=== PATIENT | female | born 1995 | race Caucasian/White ===

== ENCOUNTER 2021-08-26 12:45 | Outpatient (CLI) | payer OTHER ==
[~2021-08-26] VITALS: Ht 154.9 cm; Wt 60.0 kg
[~2021-08-26 12:45] MED LIST: SODIUM CHLORIDE 0.9% INJ 10 ML SYR IV SCH
[2021-08-26 13:00] VITALS: BP 119/69
== END 2021-08-26 13:15 | disposition home or self-care (01) ==
LOC: M INFU 12:45
PROVIDERS: ATTEND Internal Medicine Critical Care Medicine
DX: E84.9 Cystic fibrosis, unspecified (principal)
CPT/HCPCS: 96523; J1642

== ENCOUNTER → 2021-09-30 | Outpatient (CLI) | payer OTHER ==
[2021-09-30 11:23] LABS: SWEAT TEST RT ARM 50.9 MEQ CL/L (0.0-40.0); WEIGHT OF SWEAT LFT ARM QNS MG
== END ==
LOC: M LAB 09:28
PROVIDERS: ATTEND Internal Medicine Pulmonary Disease
DX: E84.9 Cystic fibrosis, unspecified (principal)

== ENCOUNTER 2022-02-15 13:13 | Outpatient (CLI) | payer OTHER ==
[~2022-02-15] VITALS: Ht 154.9 cm; Wt 60.0 kg
[~2022-02-15 13:13] MED LIST changes: +SODIUM CHLORIDE 0.9% INJ 10 ML SYR IV PRN
[2022-02-15 13:29] VITALS: BP 126/76
== END 2022-02-15 13:30 | disposition home or self-care (01) ==
LOC: M INFU 13:13
PROVIDERS: ATTEND Nurse Practitioner Adult Health
DX: E84.9 Cystic fibrosis, unspecified (principal)
CPT/HCPCS: 96523; J1642

== ENCOUNTER 2022-07-26 12:54 | Outpatient (CLI) | payer OTHER ==
[~2022-07-26] VITALS: Ht 154.9 cm; Wt 60.0 kg
[2022-07-26] MEDS ORDERED: SODIUM CHLORIDE 0.9% INJ 10 ML SYR IV PRN (13:00)
[2022-07-26 13:10] VITALS: BP 112/60
== END 2022-07-26 13:25 ==
LOC: M INFU 12:54
PROVIDERS: ATTEND Nurse Practitioner Adult Health
DX: E84.9 Cystic fibrosis, unspecified (principal)
CPT/HCPCS: 96523; J1642

== ENCOUNTER 2022-09-01 13:20 | Outpatient (CLI) | payer OTHER ==
[~2022-09-01] VITALS: Ht 154.9 cm; Wt 60.0 kg
[~2022-09-01 13:20] MED LIST changes: -SODIUM CHLORIDE 0.9% INJ 10 ML SYR IV PRN
[2022-09-01 13:27] VITALS: BP 117/65
== END 2022-09-01 13:30 ==
LOC: M INFU 13:20
PROVIDERS: ATTEND Nurse Practitioner Adult Health
DX: E84.0 Cystic fibrosis with pulmonary manifestations (principal)

== ENCOUNTER → 2022-09-26 | Outpatient (REF) | payer OTHER ==
[2022-10-01 16:08] LABS: CA Oxalate Dihy 10 % (.); Ca Ox Monohydrate 90 % (.); Size 5x2 mm (.)
== END ==
LOC: M SMT 13:44
PROVIDERS: ATTEND Physician Assistant
DX: Z87.442 Personal history of urinary calculi (principal)
CPT/HCPCS: 82365; G0463

== ENCOUNTER 2022-12-26 13:55 | Outpatient (CLI) | payer OTHER ==
[~2022-12-26 13:55] MED LIST changes: +SODIUM CHLORIDE 0.9% INJ 10 ML SYR IV PRN; -SODIUM CHLORIDE 0.9% INJ 10 ML SYR IV SCH
[2022-12-26 14:04] VITALS: BP 117/86; O2SAT 98
[2022-12-27] MEDS ORDERED: SODIUM CHLORIDE 0.9% INJ 10 ML SYR IV SCH (09:00)
== END 2022-12-26 14:10 ==
LOC: M INFU 13:55
PROVIDERS: ATTEND Nurse Practitioner Adult Health
DX: E84.0 Cystic fibrosis with pulmonary manifestations (principal)

== ENCOUNTER 2023-02-24 12:35 | Outpatient (CLI) | payer OTHER ==
[~2023-02-24] VITALS: Ht 154.9 cm; Wt 60.0 kg
[2023-02-24 12:35] VITALS: BP 123/74; O2SAT 98
[~2023-02-24 12:35] MED LIST changes: -SODIUM CHLORIDE 0.9% INJ 10 ML SYR IV PRN; +SODIUM CHLORIDE 0.9% INJ 10 ML SYR IV SCH
== END 2023-02-24 13:05 | disposition home or self-care (01) ==
LOC: M INFU 12:35
PROVIDERS: ATTEND Nurse Practitioner Adult Health
DX: E84.0 Cystic fibrosis with pulmonary manifestations (principal)

== ENCOUNTER → 2023-03-23 | Outpatient (REF) | payer OTHER | LOC: M LAB REF 20:22 | PROVIDERS: ATTEND Student in an Organized Health Care Education/Training Program | DX: J06.9 Acute upper respiratory infection, unspecified (principal) ==

== ENCOUNTER 2023-03-28 12:51 | Outpatient (CLI) | payer OTHER ==
[~2023-03-28] VITALS: Ht 154.9 cm; Wt 58.0 kg
[2023-03-28 13:08] VITALS: BP 110/65; O2SAT 98
== END 2023-03-28 13:18 ==
LOC: M INFU 12:51
PROVIDERS: ATTEND Nurse Practitioner Adult Health
DX: E84.0 Cystic fibrosis with pulmonary manifestations (principal)

== ENCOUNTER 2023-04-27 12:56 | Outpatient (CLI) | payer OTHER ==
[2023-04-27 13:04] VITALS: BP 96/52; O2SAT 99
[2023-04-27 13:30] VITALS: BP 112/69; O2SAT 97
== END 2023-04-27 13:30 ==
LOC: M INFU 12:56
PROVIDERS: ATTEND Nurse Practitioner Adult Health
DX: E84.0 Cystic fibrosis with pulmonary manifestations (principal)

== ENCOUNTER → 2023-05-29 | Outpatient (CLI) | payer OTHER ==
[2023-05-29 13:25] VITALS: BP 115/60; O2SAT 98
== END ==
LOC: M INFU 13:15
PROVIDERS: ATTEND Nurse Practitioner Adult Health
DX: E84.0 Cystic fibrosis with pulmonary manifestations (principal)

== ENCOUNTER 2023-07-03 12:50 | Outpatient (CLI) | payer OTHER ==
[2023-07-03 12:50] VITALS: BP 132/70; O2SAT 97
[2023-07-03] MEDS: SODIUM CHLORIDE 0.9% INJ 10 ML SYR IV SCH (12:52)
== END 2023-07-03 13:00 | disposition home or self-care (01) ==
LOC: M INFU 12:50
PROVIDERS: ATTEND Nurse Practitioner Adult Health
DX: E84.0 Cystic fibrosis with pulmonary manifestations (principal)

== ENCOUNTER 2023-07-27 12:50 | Outpatient (CLI) | payer OTHER ==
[~2023-07-27] VITALS: Ht 154.9 cm; Wt 58.0 kg
[2023-07-27] MEDS: SODIUM CHLORIDE 0.9% INJ 10 ML SYR IV SCH (12:51)
[2023-07-27 13:00] VITALS: BP 127/66; O2SAT 99
== END 2023-07-27 13:00 | disposition home or self-care (01) ==
LOC: M INFU 12:50
PROVIDERS: ATTEND Nurse Practitioner Adult Health
DX: E84.0 Cystic fibrosis with pulmonary manifestations (principal)

== ENCOUNTER 2023-08-24 13:21 | Outpatient (CLI) | payer OTHER ==
[~2023-08-24] VITALS: Ht 154.9 cm; Wt 60.0 kg
[2023-08-24] MEDS: SODIUM CHLORIDE 0.9% INJ 10 ML SYR IV SCH (13:43)
[2023-08-24 13:50] VITALS: BP 132/67; O2SAT 99
== END 2023-08-24 13:50 ==
LOC: M INFU 13:21
PROVIDERS: ATTEND Nurse Practitioner Adult Health
DX: E84.0 Cystic fibrosis with pulmonary manifestations (principal)

== ENCOUNTER 2023-09-21 12:45 | Outpatient (CLI) | payer OTHER ==
[~2023-09-21] VITALS: Ht 154.9 cm; Wt 62.0 kg
[2023-09-21 12:45] VITALS: BP 131/66; O2SAT 97
[2023-09-21] MEDS: SODIUM CHLORIDE 0.9% INJ 10 ML SYR IV SCH (12:52)
== END 2023-09-21 13:00 | disposition home or self-care (01) ==
LOC: M INFU 12:45
PROVIDERS: ATTEND Nurse Practitioner Adult Health
DX: E84.0 Cystic fibrosis with pulmonary manifestations (principal)

== ENCOUNTER 2023-10-26 13:00 | Outpatient (CLI) | payer OTHER ==
[2023-10-26 13:00] VITALS: BP 121/63; O2SAT 99
[2023-10-26] MEDS: SODIUM CHLORIDE 0.9% INJ 10 ML SYR IV SCH (13:04)
== END 2023-10-26 13:20 ==
LOC: M INFU 13:00
PROVIDERS: ATTEND Nurse Practitioner Adult Health
DX: E84.0 Cystic fibrosis with pulmonary manifestations (principal)

== ENCOUNTER 2023-11-30 13:00 | Outpatient (CLI) | payer OTHER ==
[2023-11-30 12:55] VITALS: BP 111/56; O2SAT 97
[2023-11-30] MEDS: SODIUM CHLORIDE 0.9% INJ 10 ML SYR IV SCH (13:00)
== END 2023-11-30 13:15 ==
LOC: M INFU 13:00
PROVIDERS: ATTEND Nurse Practitioner Adult Health
DX: E84.0 Cystic fibrosis with pulmonary manifestations (principal)

== ENCOUNTER 2023-12-28 13:05 | Outpatient (CLI) | payer OTHER ==
[2023-12-28 13:15] VITALS: BP 116/69; O2SAT 99
[2023-12-28] MEDS: SODIUM CHLORIDE 0.9% INJ 10 ML SYR IV SCH (13:19)
== END 2023-12-28 13:35 ==
LOC: M INFU 13:05
PROVIDERS: ATTEND Nurse Practitioner Adult Health
DX: E84.0 Cystic fibrosis with pulmonary manifestations (principal)

== ENCOUNTER 2024-02-01 12:57 | Outpatient (CLI) | payer OTHER ==
[2024-02-01 13:00] VITALS: BP 131/74; O2SAT 97
[2024-02-01] MEDS: SODIUM CHLORIDE 0.9% INJ 10 ML SYR IV SCH (13:04)
== END 2024-02-01 13:15 ==
LOC: M INFU 12:57
PROVIDERS: ATTEND Nurse Practitioner Adult Health
DX: Z45.2 Encounter for adjustment and management of vascular access device (principal)
CPT/HCPCS: 96523; J1642